=== PATIENT | male | born 2000 | race Caucasian/White ===

== ENCOUNTER 2018-01-30 11:04 | Emergency (ER) | payer BC ==
--- NOTE | 2018-01-30 12:50 | UC ---
Throat Pain/Nasal Miguel HPI - HPI Summary HPI Summary: Per [employer] teacher: "SINUS CONGESTION AND EAR PRESSURE X1 WEEK AND NOW WOKE UP TODAY WITH LEFT EYE DISCHARGE AND REDNESS" -He has a significant history of ear infections. He does not have pain at this point. He knows of ear infection.He uses Flonase nasal spray and antihistamines daily to help prevent symptoms from worsening. He does not have sinus pain or pressure at this point. No fevers. Left eye was crusted shut this morning. He does not wear contact lenses. no asthma. - History of Current Complaint Chief Complaint: UCGeneralIllness Stated Complaint: CONGESTION EARS LEFT EYE COMPLAINT Time Seen by Provider: 01/30/18 12:46 Pain Intensity: 0 - Allergies/Home Medications Allergies/Adverse Reactions: Allergies Allergy/AdvReac Type Severity Reaction Status Date / Time amoxicillin [From Augmentin] Allergy Hives Verified 01/30/18 11:43 clavulanic acid Allergy Hives Verified 01/30/18 11:43 [From Augmentin] Home Medications: Home Medications Ibuprofen 400 mg PO Q8H 01/30/18 [History Confirmed 01/30/18] Loratadine [Claritin] 10 mg PO DAILY 01/30/18 [History Confirmed 01/30/18] Pseudoephedrine HCl [Suphedrine] 30 mg PO DAILY 01/30/18 [History Confirmed ] PMH/Surg Hx/FS Hx/Imm Hx Previously Healthy: Yes - Surgical History Surgical History: Yes Surgery Procedure, Year, and Place: TONSILLECTOMY. EAR TUBES - Family History Known Family History: Negative: Respiratory Disease - no asthma - Social History Alcohol Use: Occasionally Substance Use Type: None Smoking Status (MU): Never Smoked Tobacco Review of Systems Constitutional: Negative Skin: Negative Eyes: Drainage, Eye Redness ENT: Nasal Discharge, Other - b/l ear fullness, but no pain. h/o many ear infections. Respiratory: Negative Cardiovascular: Negative Gastrointestinal: Negative Genitourinary: Negative Motor: Negative Neurovascular: Negative Musculoskeletal: Negative Neurological: Negative Psychological: Negative Is Patient Immunocompromised?: No All Other Systems Reviewed And Are Negative: Yes Physical Exam Triage Information Reviewed: Yes Appearance: Well-Appearing, No Pain Distress, Well-Nourished - very pleasant, good historian. Vital Signs: Initial Vital Signs Temp 98.1 F 01/30/18 11:40 Pulse 74 01/30/18 11:40 Resp 15 01/30/18 11:40 BP 122/78 01/30/18 11:40 Pulse Ox 98 01/30/18 11:40 Vital Signs Reviewed: Yes Eyes: Positive: Conjunctiva Inflamed - left mild injection. ENT: Positive: Pharyngeal erythema - + PND, no exudate., Nasal congestion, TM dull - w/ scar tissue. no erythema. intact. no bulging. no fluid.. Negative: Hoarse voice, Sinus tenderness Dental Exam: Normal Neck exam: Normal Neck: Positive: Supple, Nontender, No Lymphadenopathy Respiratory Exam: Normal Respiratory: Positive: Lungs clear, Normal breath sounds, No respiratory distress, No accessory muscle use. Negative: Crackles, Rhonchi, Stridor, Wheezing Cardiovascular Exam: Normal Cardiovascular: Positive: RRR, No Murmur, Pulses Normal Abdomen Description: Positive: Nontender, Soft Musculoskeletal Exam: Normal Neurological Exam: Normal Psychological Exam: Normal Skin Exam: Normal Throat Pain/Nasal Course/Dx - Differential Dx/Diagnosis Differential Diagnosis/HQI/PQRI: Laryngitis, Pharyngitis, Sinusitis, Tonsillitis , URI Provider Diagnoses: Left conjunctivitis mild. Viral URI Discharge - Sign-Out/Discharge Documenting (check all that apply): Patient Departure All imaging exams completed and their final reports reviewed: No Studies - Discharge Plan Condition: Stable Disposition: HOME Prescriptions: Gentamicin 0.3% OPHTH.SOLN* 1 drop LEFT EYE Q4H 5 Days #1 btl Patient Education Materials: Upper Respiratory Infection (ED), Conjunctivitis ( ED) Referrals: No Primary Care Phys,NOPCP [Primary Care Provider] - Additional Instructions: If your symptoms worsen, you can follow up here. You are familiar with the symptoms/pain of ear infections and should be seen if the occur. You can follow up here or student health. - Billing Disposition and Condition Condition: STABLE Disposition: Home
== END 2018-01-30 13:09 | disposition home or self-care (01) ==
LOC: UCCORT 11:04
DX: H10.9 Unspecified conjunctivitis (principal); Z88.8 Allergy status to other drugs, medicaments and biological substances; Z88.0 Allergy status to penicillin; J06.9 Acute upper respiratory infection, unspecified
CPT/HCPCS: 99202; G0463